=== PATIENT | female | born 1990 | race Caucasian/White ===

== ENCOUNTER 2017-06-22 23:45 | Emergency (ER) | payer SELFPAY ==
[~2017-06-22] VITALS: Ht 157.5 cm; Wt 57.0 kg
[2017-06-23] MEDS ORDERED: PREDNISONE 20MG TABLET PO ONE (00:30)
[2017-06-23 01:15] VITALS: BP 94/57
== END 2017-06-23 01:50 | disposition home or self-care (01) ==
LOC: ER 23:45
DX: T78.1XXA Other adverse food reactions, not elsewhere classified, initial encounter (principal); Z91.010 Allergy to peanuts; J45.909 Unspecified asthma, uncomplicated; X58.XXXA Exposure to other specified factors, initial encounter
CPT/HCPCS: 99283; J7512